=== PATIENT | male | born 1945 | race Caucasian/White ===

== ENCOUNTER 2022-02-25 10:07 | Emergency (ER) | payer MEDICARE, SELFPAY ==
[2022-02-25 10:22] VITALS: BP 164/81; PULSE 69; RESP 18; TEMP 36.3; O2SAT 100
--- NOTE | 2022-02-25 10:24 | ED.EAR ---
HPI - Ear Problem General Chief complaint: Ear Stated complaint: Lt Ear Irritation Time Seen by Provider: 02/25/22 10:25 Source: patient and RN notes reviewed Mode of arrival: ambulatory Limitations: no limitations History of Present Illness HPI Narrative: 76-year-old male presents to the [facility] with complaints of left ear. Patient in pain since yesterday. Patient states he had some vertigo yesterday, none today. Denies any fevers, chest pain. Has a history of hypertension, diabetes. Patient reports multiple ear infections of the left ear. Related Data Home Medications Medication Instructions Recorded Confirmed amlodipine 10 mg-benazepril 20 mg 1 cap PO DAILY 02/25/22 02/25/22 capsule hydrochlorothiazide 12.5 mg capsule 12.5 mg PO DAILY 02/25/22 02/25/22 metformin 500 mg tablet,extended 500 mg PO BID 02/25/22 02/25/22 release 24 hr metoprolol succinate 50 mg 50 mg PO DAILY 02/25/22 02/25/22 tablet,extended release 24 hr multivitamin with minerals-folic 1 tablet PO DAILY 02/25/22 02/25/22 acid 0.4 mg tablet omeprazole 20 mg capsule,delayed 20 mg PO DAILY 02/25/22 02/25/22 release Allergies Allergy/AdvReac Type Severity Reaction Status Date / Time Penicillins AdvReac Mild Hives Verified 02/25/22 10:28 Review of Systems Review of Systems: All systems reviewed & are unremarkable except as noted in HPI and below Constitutional: Constitutional: Reports no additional constitutional complaints, Denies chills and Denies fever(s) Eyes: Eyes: Reports no additional eye complaints ENT: Reports as per HPI (Left ear irritation and pain) and Reports vertigo (Yesterday, none today) Cardiovascular: Cardiovascular: Reports no additional cardiovascular complaints Respiratory: Respiratory: Reports no additional respiratory complaints Gastrointestinal: Gastrointestinal: Reports no additional gastrointestinal complaints Musculoskeletal: Musculoskeletal: Reports no additional musculoskeletal complaints Integumentary/Breasts: Skin/Breast: Reports system reviewed and no additional complaints, except as docu Neurologic: Reports system reviewed and no additional complaints, except as documented Psychiatric: Psychiatric: Reports no additional psychiatric complaints Allergic/Immunologic: Allergic/Immunologic: Reports no additional allergic/immunologic complaints FOR[facility]LY [facility] Past Medical History Medical History (Updated 02/25/22 @ 10:40 by Jackie Stoll APRN) Diabetes H/O gastroesophageal reflux (GERD) History of high blood pressure Surgical History Surgical History (Updated 02/25/22 @ 10:27 by Jackie Stoll APRN) No history of previous surgery Social History Social History Gender identity (if verbalized by the patient): Male Comments At the time of my signature, I reviewed and agree with the nursing past medical, surgical, social, and family history. There is no relevant family history pertinent to the patient complaint. Exam Const: General: healthy appearing, no acute distress and alert Nutritional Appearance: well nourished and obese Orientation/consciousness: patient oriented x3 Limitations: no limitations HENMT: Head: normal to inspection Ears: external ears normal, EAC's normal and TM abnormal erythematous (top 50% of the TM) on the left General nose exam: Normal external nose present and Normal nares present Face and sinus: normal facial exam Mouth: Yes Normal oral and palatal mucosa present and Yes lip normal Eyes: General: appearance normal, both eyes and all related structures Conjunctivae: conjunctivae normal Pupils: Equal, round and reactive pupils present Neck: Neck: normal visual inspection, no lymphadenopathy and no meningeal signs Chest: Chest palpation & inspection: normal inspection of the chest Resp: Effort & Inspection: normal respiratory effort and no use of accessory muscles Auscultation: clear to auscultation
== END 2022-02-25 10:45 | disposition home or self-care (01) ==
PROVIDERS: Emergency Provider Nurse Practitioner; PCP Internal Medicine
DX: H66.002 Acute suppurative otitis media without spontaneous rupture of ear drum, left ear (principal); E11.9 Type 2 diabetes mellitus without complications; K21.9 Gastro-esophageal reflux disease without esophagitis; I10 Essential (primary) hypertension
CPT/HCPCS: 99203; G0463